=== PATIENT | female | born 1985 | race African-American/Black ===

== ENCOUNTER 2016-10-10 15:34 | Emergency (ER) | payer SELFPAY ==
[~2016-10-10] VITALS: Ht 157.5 cm; Wt 58.0 kg
[2016-10-10 18:32] VITALS: BP 121/81
== END 2016-10-10 18:33 | disposition home or self-care (01) ==
LOC: EMS 15:37
DX: T16.1XXA Foreign body in right ear, initial encounter (principal); Z88.6 Allergy status to analgesic agent
CPT/HCPCS: 99281